=== PATIENT | male | born 1965 | race American Indian/Alaskan Native ===

== ENCOUNTER 2023-11-20 20:57 | Emergency (ER) | payer OTHER ==
[~2023-11-20] VITALS: Ht 182.9 cm; Wt 108.9 kg
[~2023-11-20 20:57] MED LIST: PRED10 PO
[2023-11-21] MEDS ORDERED: CefTRIAXone 1000 MG Vial IM ONE (00:15)
[2023-11-21] MEDS ORDERED: Doxycycline Hyclate 100 MG TAB PO ONE (00:15)
[2023-11-21 01:06] LABS: Chlamydia Trachomatis Urine NOT DETECTED (NOT DETECT); Neisseria Gonorrhoea Urine NOT DETECTED (NOT DETECT)
[2023-11-21] MEDS ORDERED: DOXY100 PO (04:49)
== END 2023-11-21 00:25 | disposition left against medical advice (07) ==
LOC: ER 20:57
PROVIDERS: Student in an Organized Health Care Education/Training Program
DX: A64 Unspecified sexually transmitted disease (principal)
CPT/HCPCS: 87491; 87591; 99283; J0696

== ENCOUNTER 2023-11-21 01:14 | Emergency (ER) | payer OTHER ==
[~2023-11-21] VITALS: Ht 182.9 cm; Wt 108.9 kg
[2023-11-21] MEDS ORDERED: DOXY100 PO (04:49)
[2023-11-21] MEDS ORDERED: Doxycycline Hyclate 100 MG TAB PO ONE (04:50)
[2023-11-21] MEDS ORDERED: CefTRIAXone 1000 MG Vial IM ONE (04:50)
== END 2023-11-21 05:08 | disposition home or self-care (01) ==
LOC: ER 01:14
DX: R36.9 Urethral discharge, unspecified (principal); Z20.2 Contact with and (suspected) exposure to infections with a predominantly sexual mode of transmission
CPT/HCPCS: 96372; 99283-25; A9270